=== PATIENT | male | born 2000 | race Caucasian/White ===

== ENCOUNTER 2021-11-18 18:33 | Emergency (ER) | payer BC ==
[~2021-11-18] VITALS: Ht 188 cm; Wt 77.2 kg
[2021-11-18] MEDS ORDERED: CVS OMEPRAZOLE20 MG (19:50)
[2021-11-18 20:30] VITALS: BP 142/88
== END 2021-11-18 20:30 | DRG 552 ==
LOC: ED 18:33
DX: S12.300A Unspecified displaced fracture of fourth cervical vertebra, initial encounter for closed fracture (principal); W16.122A Fall into natural body of water striking bottom causing other injury, initial encounter; Y93.11 Activity, swimming; Y92.828 Other wilderness area as the place of occurrence of the external cause